=== PATIENT | male | born 1960 | race Caucasian/White ===

== ENCOUNTER → 2024-10-01 14:58 | Outpatient (REF) | payer MEDICARE, SELFPAY | LOC: DHVS 14:58 | PROVIDERS: ATTENDING PHYSICIAN Surgery Vascular Surgery; FAMILY PHYSICIAN Internal Medicine Geriatric Medicine | DX: I77.9 Disorder of arteries and arterioles, unspecified (principal) | CPT/HCPCS: 93922; 93925 ==